=== PATIENT | male | born 2000 | race Caucasian/White ===

== ENCOUNTER → 2020-11-03 | Outpatient (CLI) | payer BC | END | disposition home or self-care (01) | LOC: COVID19 11:01 | PROVIDERS: ATTEND Internal Medicine | DX: Z20.822 Contact with and (suspected) exposure to COVID-19 (principal) ==

== ENCOUNTER → 2023-08-09 | Day surgery (SDC) | payer BC ==
[2023-08-07 14:38] VITALS: BP 129/86
[2023-08-07 15:47] LABS: BASO % 0.6 % (0.0-1.0); EOS # 0.1 10*3/uL (0.0-0.4); EOS % 1.1 % (1.0-4.0); HEMATOCRIT 44.5 % (42.0-52.0); LYMPH # 1.4 10*3/uL (1.3-4.4); LYMPH % 19.4 % (27.0-41.0); MEAN CELL VOLUME 86.4 fl (80.0-94.0); MEAN CORPUSCULAR HGB 29.9 pg (27.0-31.0); MEAN CORPUSCULAR HGB CONC 34.6 g/dl (33.0-37.0); MONO # 0.4 10*3/uL (0.1-1.0); MONO % 6.2 % (3.0-9.0); NEUT # 5.1 10*3/uL (2.3-7.9); NEUT % 72.6 % (47.0-73.0); PLATELET COUNT AUTOMATED 199 10*3/uL (130-400); RED BLOOD COUNT 5.15 10*6/uL (4.50-5.90); RED CELL DISTRI WIDTH 11.9 % (0-14.5); WHITE BLOOD COUNT 7.1 10*3/uL (4.8-10.8)
[2023-08-07 15:58] LABS: ACT PARTIAL THROMBO TIME 27.1 SECONDS (20.0-32.1)
[~2023-08-09] VITALS: Ht 177.8 cm; Wt 104.3 kg
[~2023-08-09] MED LIST: ZOLOFT50 MG PO
[2023-08-09 10:15] VITALS: BP 128/71
[2023-08-09 11:26] VITALS: BP 137/90
[2023-08-09 11:34] VITALS: BP 128/85
[2023-08-09 11:56] VITALS: BP 124/74
[2023-08-09 12:13] VITALS: BP 128/80
== END | disposition home or self-care (01) ==
LOC: SDC 08-04 14:00
PROVIDERS: ATTEND Specialist
DX: R04.0 Epistaxis (principal)

== ENCOUNTER 2024-01-24 15:01 | Emergency (ER) | payer OTHER, BC ==
[~2024-01-24] VITALS: Wt 111.1 kg
[2024-01-24] MEDS ORDERED: ACETAMINOPHEN 325 MG TAB PO ONE (15:25)
[2024-01-24] MEDS ORDERED: Tdap Vaccine 0.5 ML SYR (Adult Vaccine) IM ONE (15:45)
[2024-01-24] MEDS ORDERED: CEPHALEXIN500 M1 PO (16:12)
[2024-01-24] MEDS ORDERED: PERCOCET 5-3251 EACH PO ×2 (16:12→16:16)
== END 2024-01-24 16:33 | disposition home or self-care (01) ==
LOC: ED 15:01
DX: S62.633A Displaced fracture of distal phalanx of left middle finger, initial encounter for closed fracture (principal); S61.213A Laceration without foreign body of left middle finger without damage to nail, initial encounter; F32.A Depression, unspecified; W26.8XXA Contact with other sharp object(s), not elsewhere classified, initial encounter; Y93.89 Activity, other specified; Y92.89 Other specified places as the place of occurrence of the external cause; Y99.8 Other external cause status

== ENCOUNTER → 2024-02-05 | Outpatient (CLI) | payer BC ==
[~2024-02-05] MED LIST changes: +CEPHALEXIN500 M1 PO; +PERCOCET 5-3251 EACH PO
== END | disposition home or self-care (01) ==
LOC: ORTHO 03:16
PROVIDERS: ATTEND Orthopaedic Surgery
DX: S62.663D Nondisplaced fracture of distal phalanx of left middle finger, subsequent encounter for fracture with routine healing (principal); X58.XXXD Exposure to other specified factors, subsequent encounter

== ENCOUNTER → 2024-02-16 | Outpatient (CLI) | payer BC | END | disposition home or self-care (01) | LOC: ORTHO 02:03 | PROVIDERS: ATTEND Orthopaedic Surgery | DX: S62.663D Nondisplaced fracture of distal phalanx of left middle finger, subsequent encounter for fracture with routine healing (principal); X58.XXXD Exposure to other specified factors, subsequent encounter ==